=== PATIENT | male | born 1965 | race Caucasian/White ===

== ENCOUNTER 2017-07-03 15:09 | Emergency (ER) | payer OTHER ==
[2017-07-03 15:19] VITALS: BP 177/88; PULSE 72; TEMP 98.7; BMI 37.5
[2017-07-03] MEDS ORDERED: IBUPROFEN 600 MG TABLET (FP) PO ONE ×2 (16:01→16:03)
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
== END 2017-07-03 16:06 | disposition home or self-care (01) ==
LOC: JERFT 15:09
DX: M54.89 Other dorsalgia (principal); M79.601 Pain in right arm; M79.602 Pain in left arm; M79.604 Pain in right leg; M79.605 Pain in left leg; V49.49XA Driver injured in collision with other motor vehicles in traffic accident, initial encounter; Y92.488 Other paved roadways as the place of occurrence of the external cause; Y93.89 Activity, other specified; Y99.8 Other external cause status
CPT/HCPCS: 99281-25